=== PATIENT | female | born 1975 | race Caucasian/White ===

== ENCOUNTER → 2021-12-06 | Outpatient (CLI) | payer BC | LOC: COL.VAS 12-02 13:15 | DX: G45.9 Transient cerebral ischemic attack, unspecified (principal); H53.9 Unspecified visual disturbance ==

== ENCOUNTER → 2021-12-16 | Outpatient (CLI) | payer BC | LOC: COL.RAD 07:55 | DX: R68.81 Early satiety (principal) | CPT/HCPCS: A9541 ==